=== PATIENT | female | born 1980 | race Caucasian/White ===

== ENCOUNTER → 2016-06-27 | Outpatient (CLI) | payer BC ==
[~2016-06-27] MED LIST: BENADRYL-DPS25 MG PO; EPIPEN 2-P0.3 MG/0.3 SQ; FEOSOL-DPS325 MG PO; MONTELUKAST SOD10 MG PO; MOTRIN-DPS800 MG PO; PRENATAL VIT1 TAB PO; TYLENOL #3 DPS1 TAB PO; TYLENOL DPS325 MG PO; ZANTAC DPS150 MG PO; ZOLOFT DPS50 MG PO; ZYRTEC DPS10 MG PO; [UNRECOGNIZED DRUG - OTHER]
== END | disposition home or self-care (01) ==
LOC: PTH.S 13:00
DX: N96 Recurrent pregnancy loss (principal)

== ENCOUNTER 2016-07-01 19:35 | Emergency (ER) | payer BC ==
[2016-07-03] MEDS ORDERED: PRENATAL VIT1 TAB PO (12:18)
[2016-07-03] MEDS ORDERED: BENADRYL-DPS25 MG PO (12:19)
[2016-07-03] MEDS ORDERED: [UNRECOGNIZED DRUG - OTHER] (12:20)
[2016-07-03] MEDS ORDERED: TYLENOL DPS325 MG PO (12:20)
[2016-07-03] MEDS ORDERED: MOTRIN-DPS800 MG PO (12:21)
[2016-07-03] MEDS ORDERED: TYLENOL #3 DPS1 TAB PO (12:21)
--- NOTE | 2016-07-10 23:29 | ER ---
ADMIT: 07/01/2016 RM/LOC: ER [facility] MR#: [id number] [address] [address] ZE MELCHOR [address] [place] [address] Emergency Room Report SEX: F AGE: 36 : 1980 DATE: 07/01/2016 HISTORY OF PRESENT ILLNESS: She has vaginal bleed for 2 days, worse for the last 2 hours. She estimates 3 pads in an hour. She had an induced miscarriage last Monday and D and C twice. She does not consider this being a D and C, and she is concerned about any retained products. She contacted Dr. Staples today, he advised her to come to the emergency room and get evaluated. ALLERGIES: SHE IS ALLERGIC TO ZITHROMAX. MEDICATIONS: She takes: 1. Claritin. 2. Cetirizine. 3. Ranitidine. PHYSICAL EXAMINATION: VITAL SIGNS: Within normal limits except for temperature of 100.1, and O2 sats 98%. EMERGENCY ROOM COURSE: We will be doing an ultrasound. The CBC within normal limits. Hemoglobin is normal. Gave her IV fluids. Dr. Staples will be contacted. KAMILA Rincon / Chapo Jimenez MD / cassandral JOB #: [id number] CC: Chapo Jimenez MD, Attending Physician
[2016-07-12] MEDS ORDERED: ZANTAC DPS150 MG PO (09:45)
[2016-07-12] MEDS ORDERED: MONTELUKAST SOD10 MG PO (09:45)
[2016-07-12] MEDS ORDERED: EPIPEN 2-P0.3 MG/0.3 SQ (09:46)
[2016-07-12] MEDS ORDERED: ZYRTEC DPS10 MG PO (09:46)
[2016-07-12] MEDS ORDERED: ZOLOFT DPS50 MG PO ×2 (09:47)
[2016-07-12] MEDS ORDERED: FEOSOL-DPS325 MG PO (09:48)
== END 2016-07-01 23:55 | disposition home or self-care (01) ==
LOC: ER 19:35
DX: O03.4 Incomplete spontaneous abortion without complication (principal); Z88.1 Allergy status to other antibiotic agents; Z88.8 Allergy status to other drugs, medicaments and biological substances; Z79.899 Other long term (current) drug therapy

== ENCOUNTER 2016-07-02 18:28 | Observation (INO) | payer BC ==
[2016-07-03] MEDS ORDERED: PRENATAL VIT1 TAB PO (12:18)
[2016-07-03] MEDS ORDERED: BENADRYL-DPS25 MG PO (12:19)
[2016-07-03] MEDS ORDERED: TYLENOL DPS325 MG PO (12:20)
[2016-07-03] MEDS ORDERED: [UNRECOGNIZED DRUG - OTHER] (12:20)
[2016-07-03] MEDS ORDERED: MOTRIN-DPS800 MG PO (12:21)
[2016-07-03] MEDS ORDERED: TYLENOL #3 DPS1 TAB PO (12:21)
--- NOTE | 2016-07-04 09:39 | OR ---
ADMIT: 07/02/2016 RM/LOC: W.02 [facility] MR#: [id number] [address] [address] ZE MELCHOR [address] [place] [address] Operative/Delivery Room Report SEX: F AGE: 36 : 1980 SURGERY DATE: 07/02/2016 SURGEON: Bruce Staples MD PRINCIPAL DIAGNOSIS: Incomplete . POSTOPERATIVE DIAGNOSIS: Incomplete . PROCEDURE: Dilation and curettage. INDICATION: The patient is a 36-year-old white female, 4, para 0-0-3- 0, who had presented with vaginal bleeding, had a known miscarriage which they had attempted to treat with misoprostol. ANESTHESIA: LMA. ESTIMATED BLOOD LOSS: 100 mL. COMPLICATIONS: None. FINDINGS: An anteflexed uterus, which sounded to 9 cm. PROCEDURE IN DETAIL: The patient was taken to the operating room, where she was prepped and draped in the usual fashion in dorsal lithotomy position. Speculum was placed in the vagina. Anterior lip of the cervix was identified and grasped with a single-tooth tenaculum. Cervix was then gently dilated utilizing Hanks dilators. An 8 mm curved suction curette was then gently advanced to the uterine fundus, suction was activated and the curette was rotated to remove any remaining products of conception. The procedure was repeated 2 additional times. A sharp curetting was then performed of the endometrial cavity until a gritty texture was noted throughout. Two additional passes were then performed with the suction curette. All instruments were then removed from the patient's vagina. The patient tolerated the procedure well and was taken to recovery room in stable condition. All sponge, instrument, and needle counts were correct. Bruce Staples MD/ modl JOB #: [id number] CC: Bruce Staples MD, Attending Physician Bruce Staples MD, Family Physician
--- NOTE | 2016-07-04 09:39 | HP ---
ADMIT: 07/02/2016 RM/LOC: ER [facility] MR#: [id number] [address] [address] ZE MELCHOR [address] [place] [address] Pre-OP History and Physical SEX: F AGE: 36 : 1980 DATE OF SERVICE: PRINCIPAL DIAGNOSES: 1. Vaginal bleeding. 2. Incomplete . HISTORY OF PRESENT ILLNESS: The patient is a 36-year-old white female, 4, para 0-0-3-0, who presented with complaints of vaginal bleeding. The patient is approximately 10 weeks estimated gestational age. She had a missed AB at approximately 6 weeks' estimated gestational age by crown-rump length, diagnosed approximately a week ago. She had initially opted for management with misoprostol with passage of some tissue; however a week later, she had recurrence of some heavy vaginal bleeding. She had an evaluation performed in the Emergency Department. Her hemoglobin at that point was 12. Ultrasound had showed some thickening with possible retained products of conception but her bleeding had resolved at that point. The patient was dismissed to home. The following day, the patient had a recurrence of her vaginal bleeding and presented once again to the Emergency Department. Hemoglobin at that time was noted to have dropped to 10.7. PREVIOUS MEDICAL HISTORY: She denies any significant previous medical history. She states that she has a possible exercise-induced asthma. SOCIAL HISTORY: She denies tobacco or drug use, drinks socially. ALLERGIES: SHE STATES SHE HAS AN ALLERGY TO AZITHROMYCIN, WHICH CAUSES LIP SWELLING. FAMILY HISTORY: Significant for ulcerative colitis in the patient's mother. PHYSICAL EXAMINATION: GENERAL: The patient is a well-developed, well- nourished white female. Alert and oriented, in no apparent distress with normal stream of thought and content of speech. HEART: Regular rate and rhythm without murmurs, rubs, or gallops. LUNGS: Clear to auscultation bilaterally. ABDOMEN: Soft with positive bowel sounds. Mild tenderness in the lower ADMIT: 07/02/2016 RM/LOC: [facility] MR#: [id number] [address] [address] ZE MELCHOR [address] [place] [address] Pre-OP History and Physical SEX: F AGE: 36 : 1980 quadrants bilaterally with no guarding or rebound. ASSESSMENT: Incomplete . We discussed management options with the patient. She and her , both opt for dilation and curettage. We discussed risks involved with surgery including risks of infection, risk of bleeding with possible need for blood transfusion, and the attendant infectious risks inherent in blood transfusion. We also discussed risk of damage to other organs including, but not limited to, bowel, bladder, major blood vessels, and ureters with possible need for additional surgery and repair should such damage occur. The patient voiced understanding of the risks, benefits, and alternatives to the proposed procedure and desires to proceed with dilation and curettage. Bruce Staples MD/ eduardo JOB #: [id number] CC: Julio Cesar Aggarwal MD, Attending Physician Bruce Staples MD, Family Physician
--- NOTE | 2016-07-05 17:50 | ER ---
ADMIT: 07/02/2016 RM/LOC: W.02 [facility] MR#: [id number] [address] [address] ZE MELCHOR [address] [place] [address] Emergency Room Report SEX: F AGE: 36 : 1980 DATE: 07/02/2016 ADDENDUM: This patient comes to the ER because she is having continued vaginal bleeding. She was seen in our ER yesterday and also last week seen by Dr. Freeman. She has a known AB in progress. She continues to have heavy bleeding and she is concerned she may need a D and C. Yesterday, her hemoglobin was normal, today her hemoglobin was 10.7. I spoke with Dr. Staples, he will come in and examine the patient and possibly take her to do a D and C. Please see my T-sheet and her dictation for further treatment. KAMILA Kidd / Nishant Bean MD / eduardo JOB #: [id number] CC: Bruce Staples MD, Attending Physician Bruce Staples MD, Family Physician
[2016-07-12] MEDS ORDERED: MONTELUKAST SOD10 MG PO (09:45)
[2016-07-12] MEDS ORDERED: ZANTAC DPS150 MG PO (09:45)
[2016-07-12] MEDS ORDERED: ZYRTEC DPS10 MG PO (09:46)
[2016-07-12] MEDS ORDERED: EPIPEN 2-P0.3 MG/0.3 SQ (09:46)
[2016-07-12] MEDS ORDERED: ZOLOFT DPS50 MG PO ×2 (09:47)
[2016-07-12] MEDS ORDERED: FEOSOL-DPS325 MG PO (09:48)
== END 2016-07-02 23:00 | disposition home or self-care (01) ==
LOC: ER 18:28 → WOR 19:30
PROVIDERS: ADMIT Obstetrics & Gynecology
PROC: 10A07ZZ Abortion of Products of Conception, Via Natural or Artificial Opening (ICD-10-PCS; principal; 2016-07-02)
DX: O03.4 Incomplete spontaneous abortion without complication (principal); N93.9 Abnormal uterine and vaginal bleeding, unspecified; Z88.1 Allergy status to other antibiotic agents

== ENCOUNTER 2016-07-06 18:40 | Inpatient (IN) | payer BC ==
[~2016-07-06] VITALS: Ht 167.6 cm; Wt 71.0 kg
[~2016-07-06 18:40] MED LIST changes: -EPIPEN 2-P0.3 MG/0.3 SQ; -FEOSOL-DPS325 MG PO; -MONTELUKAST SOD10 MG PO; -ZANTAC DPS150 MG PO; -ZOLOFT DPS50 MG PO; -ZYRTEC DPS10 MG PO
--- NOTE | 2016-07-08 10:47 | CO ---
ADMIT: 07/06/2016 RM/LOC: 529 [facility] MR#: [id number] 2620 [facility] [address] [place] [address] ZE MELCHOR [address] [place] [address] Consultation SEX: F AGE: 36 : 1980 DATE OF CONSULTATION: 07/07/2016 ATTENDING PHYSICIAN: Yamile Freeman MD CONSULTING PHYSICIAN: Lawanda Guaman MD REASON FOR CONSULTATION: Evaluation of fever. HISTORY OF PRESENT ILLNESS: Ms. Melchor is a very pleasant 36-year-old female. She has a past medical history significant for history of C. diff with recurrence as well as history of multiple losses. It was noted that she had a recent missed AB. She was initially seen on June 24, found to having missed AB at 6 weeks and 5 days. At that time, she underwent misoprostol treatment. She had followed up in clinic and had found to have thickened endometrium with an incomplete AB. She was continuing to have heavy bleeding and had contacted her Senior Energy Tr[employer] and eventually ended up with a D and C on 07/02. Her and she report that approximately 24 hours. After her D and C, she started having a fever, she notes that her fever at home was up as high as 100.8. She reports that she was having kind of a generalized headache, some generalized body aches as well as neck stiffness and a cough. She was also having some vaginal discharge that was noted to be foul smelling. She reports that when the fever would get better that her headache symptoms and other symptoms would seem to improve some. She reports she was having trouble with a lot of nausea also. She denies any diarrhea or other symptoms at that time. She reports that she was seen in the office on 07/06. At that time, was somewhat ill appearing and did not have improvement of her symptoms after IV fluids and IV antiemetics and therefore felt warranted admission for further evaluation and treatment. She was admitted with a presumed diagnosis of endometritis. Upon arrival to the floor, it sounds as if she had a fever of 102.4, she was given IV antibiotics, underwent an ultrasound which was normal. She had a CBC at the office which was normal although did have an elevated monocyte count. Of note, patient reports that she did receive an influenza vaccine this flu season. PAST MEDICAL HISTORY: 1. Significant for history of C. diff x3 in 2009. Initially treated with Flagyl, required hospitalization with IV Vanco and then had a recurrence approximately 9 months later that was treated. 2. Multiple losses. She is 4, para 0-0-4-0. 3. Exercise-induced anaphylaxis. 4. Eczema. PAST SURGICAL HISTORY: 1. Includes tonsillectomy and adenoidectomy. 2. Myringotomy with tube placement. 3. Multiple D and Cs in March of 2015, May 2015, and June of 2016. FAMILY HISTORY: Mother with Crohn disease. Father with hypertension. ADMIT: 07/06/2016 RM/LOC: 529 [facility] MR#: [id number] [address] [place] [phone] ZE MELCHOR [address] [place] [address] Consultation SEX: F AGE: 36 : 1980 SOCIAL HISTORY: She denies any alcohol, tobacco, or illicit drug use. 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 MEDICATIONS: Currently are: 1. Clindamycin. 2. Gentamicin. 3. Ampicillin. ALLERGIES: ZITHROMAX WHICH CAUSES SWOLLEN LIPS. REVIEW OF SYSTEMS: Obtained and was pretty much as noted above. PHYSICAL EXAMINATION: GENERAL: She is alert and oriented. She is somewhat slightly hoarse to voice. SKIN: Warm and dry. She does not have any rashes noted. HEENT: Pupils are round and reactive. Oropharynx is very dry mucous membranes. NECK: Supple. She is able to flex it down and touch her chest. She has no cervical lymphadenopathy palpated. HEART: Normal rate with a regular rhythm. LUNGS: Relatively clear to auscultation bilaterally. ABDOMEN: Soft. Bowel sounds are present. She does complain of lower pelvic pain on deep palpation. EXTREMITIES: Have no evidence of edema. NEUROLOGICAL: She appears grossly intact. Moving her upper and lower extremities symmetrically. LABORATORY VALUES: Reviewed. ASSESSMENT/PLAN: 1. Fever. 2. Headache. 3. Missed status post D and C recently. 4. Nausea. 5. Cough. 6. Body aches. 7. History of Clostridium difficile. At this time, I agree with her current management. I feel it is most likely endometritis. We will go ahead and add a procalcitonin to see if this is ADMIT: 07/06/2016 RM/LOC: 529 [facility] MR#: [id number] [address] [place] [address] ZE MELCHOR [address] [place] [address] Consultation SEX: F AGE: 36 : 1980 elevated. This would be more consistent with a bacterial infection and look at her and follow her bacterial response. We will go ahead and also check respiratory viral panel as well as a chest x-ray. For her acute blood loss anemia and not tolerating her vitamins currently, we will go ahead and check her iron studies and consider giving her IV iron. With her history of C. diff, we will go ahead and start her on oral probiotic daily in hopes of decreasing her chance of recurrent C. diff. Thank you for this consult. We will follow along. Lawanda Guaman MD/ eduardo JOB #: [id number] CC: Yamile Freeman MD, Attending Physician Yamile Freeman MD, Family Physician
--- NOTE | 2016-07-10 13:06 | HP ---
ADMIT: 07/06/2016 RM/LOC: 529 [facility] MR#: [id number] [address] [address] ZE MELCHOR [address] [place] [address] History and Physical SEX: F AGE: 36 : 1980 DATE OF SERVICE: CHIEF COMPLAINT: Fever and chills with pelvic cramping and foul-smelling vaginal discharge. HISTORY OF PRESENT ILLNESS: The patient is a 36-year-old, 4, para 0-0- 4-0, who presented to the [facility] on the 24 of June for a scheduled ultrasound visit. At that time, she was diagnosed with a missed at 6 weeks and 5 days. The options for treatment of missed including observation, medical management with misoprostol, or surgical management with D and C were discussed with the patient, who elected for misoprostol management. The patient had misoprostol placed on the 24 of June. She followed up at the clinic on June 27 for an ultrasound, which revealed that the gestational sac had passed; however, the endometrial thickness was 14 mm and the patient was notified that it was not at the level recommended for repeating misoprostol, but that she should expect some heavier bleeding or clotting in the future associated with passage of any remaining products of conception. The patient subsequently called the on-call doctor on July 01 and went to the emergency room due to vaginal bleeding, which had increased over a couple of hours. At that time, her hemoglobin was noted to be appropriate. The ultrasound was consistent with the previous ultrasound with slightly thickened endometrium. The patient was given IV fluids and discharged home. The following day, the bleeding became heavier, her hemoglobin had noted to decrease approximately 1.5 g from the previous night. She had initially opted for Methergine to help decrease bleeding and pass the remaining tissue at home; however, she did call her ip paralegal, who suggested that she might be better off with a D and C. Dr. Staples performed the D and C, and by his operative report, there were no complications on the evening of July 02. Over the next several days from July 03 to July 06, the patient call the clinic or the on-call doctor at least 4 times with concerns ranging from cramping, low-grade temperature, foul smelling discharge, nausea, and generally not feeling well. She was seen in clinic on the afternoon of July 06. At that time, she was noted to be febrile, tachycardic, and generally ill appearing. She was given IV fluids and antiemetics in the clinic without good response. Her white blood cell count was not elevated. Her hemoglobin was appropriate. Her wet mount and urinalysis were negative. However, due to her ill appearance and cervical motion tenderness, she was admitted to the hospital for inpatient management of presumed postoperative endometritis. PAST MEDICAL HISTORY: 1. Recurrent loss. 2. Exercise-induced anaphylaxis. 3. Eczema. 4. History of Clostridium difficile. PAST SURGICAL HISTORY: 1. Tonsillectomy and adenoidectomy. 2. Myringotomy with tube placement. ADMIT: 07/06/2016 RM/LOC: 529 [facility] MR#: [id number] [address] [place] [id number] ZE MELCHOR [address] [place] [address] History and Physical SEX: F AGE: 36 : 1980 3. Multiple dilation and curettages in March of 2015, May 2015, and June of 2016. FAMILY HISTORY: Mother with Crohn's disease. Father with hypertension. SOCIAL HISTORY: The patient denies alcohol, tobacco, or illicit drug use. 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 MEDICATIONS: 1. Ranitidine 150 mg p.o. daily. 2. Montelukast sodium 10 mg 1 tablet p.o. daily. 3. Cetirizine HCl 10 mg p.o. daily. 4. vitamins 1 tablet p.o. daily. 5. Tylenol with codeine 1-2 tablets every 6 hours as needed. 6. EpiPen 1 injection as needed. 7. The patient was also prescribed doxycycline 100 mg p.o. b.i.d. x10 days, which she has not yet started. ALLERGIES: ZITHROMAX, WHICH CAUSES SWOLLEN LIPS. REVIEW OF SYSTEMS: Significant for fever and chills, nausea, headache and neck pain, abdominal cramping, vaginal bleeding and foul smelling discharge as described in history of present illness. The patient denies vomiting, dysuria or changes in bowel habits. LABORATORY ASSESSMENT: CBC; white count 5.2, hemoglobin 9.8, hematocrit 28.7, platelets 161. Differential granulocytes 69.9%, lymphocytes 18%, monocytes 9.5%, eosinophil 2%, basophil 1%. Urinalysis; negative glucose, bilirubin, ketones, protein, urobilinogen and leukocyte esterase and nitrites, small blood. Wet mount, occasional white blood cells. No clue cells. No fungal elements. PHYSICAL EXAMINATION: VITAL SIGNS: Blood pressure 110/72, pulse 120, temperature 101.3 degrees Fahrenheit. GENERAL: Ill-appearing white female, alert and oriented x3, in mild distress. HEENT: Head is normocephalic, atraumatic. Pupils are equal and round. Extraocular muscles are intact. NECK: Supple. Trachea midline. HEART: Tachycardic with regular rhythm. LUNGS: Clear to auscultation bilaterally. ABDOMEN: Soft, nontender, and nondistended with hypoactive bowel sounds. EXTREMITIES: No clubbing, cyanosis, or edema. NEUROLOGIC: Cranial nerves II through XII grossly intact. PELVIC: Cervix is nulliparous with bloody discharge. No heavy bleeding, purulent discharge or products of conception noted at the nulliparous cervical os. On bimanual examination, there is some cervical motion tenderness. No adnexal or uterine tenderness. ADMIT: 07/06/2016 RM/LOC: 529 [facility] MR#: [id number] 2620 [facility] [address] [place], [place] [address] ZE MELCHOR [address] [place] [address] History and Physical SEX: F AGE: 36 : 1980 ASSESSMENT AND PLAN: 1. This is a 36-year-old, 4, para 0-0-4-0, postoperative day #4, status post dilation and curettage for retained products of conception after medical management of missed , who presents with pelvic pain, fever, chills, cramping and subjective foul-smelling discharge. 2. Presumed postoperative endometritis. The patient does not have an elevated white count or any signs of urinary tract infection or vaginal infection; however, she does have cervical motion tenderness, fever, tachycardia with the only localizing symptom being her cervical motion tenderness. Therefore, the patient will be admitted and given IV fluids for rehydration, antipyretics for fever, antiemetics for nausea and started on triple antibiotic therapy for presumed postoperative endometritis. Sepsis screening protocol will be initiated and followed if the patient screens positive for sepsis. Pelvic ultrasound will be ordered to assess for any other concerning symptoms. Yamile Freeman MD/ eduardo JOB #: [id number] CC: Yamile Freeman MD, Attending Physician Yamile Freeman MD, Family Physician
[2016-07-12] MEDS ORDERED: ZANTAC DPS150 MG PO (09:45)
[2016-07-12] MEDS ORDERED: MONTELUKAST SOD10 MG PO (09:45)
[2016-07-12] MEDS ORDERED: EPIPEN 2-P0.3 MG/0.3 SQ (09:46)
[2016-07-12] MEDS ORDERED: ZYRTEC DPS10 MG PO (09:46)
[2016-07-12] MEDS ORDERED: ZOLOFT DPS50 MG PO ×2 (09:47)
[2016-07-12] MEDS ORDERED: FEOSOL-DPS325 MG PO (09:48)
--- NOTE | 2016-07-22 12:39 | CO ---
ADMIT: 07/06/2016 RM/LOC: 529 [facility] MR#: [id number] 2620 [facility] [address] [place] [address] ZE MELCHOR [address] [place] [address] Consultation SEX: F AGE: 36 : 1980 DATE OF CONSULTATION: 07/10/2016 ATTENDING PHYSICIAN: Yamile Freeman MD CONSULTING PHYSICIAN: Chelsea Marsh MD REASON FOR CONSULT: Fever. Thank you, Dr. Olmedo, for the consult and involving me in this patient's care. HISTORY OF PRESENT ILLNESS: The patient is a 36-year-old woman, 4 para 0-0-4-0, who presented to [facility] Clinic on June 24 for a scheduled ultrasound visit. She had a missed at 6 weeks and 5 days and underwent medical management with misoprostol. She had thickened endometrium and continued vaginal bleeding and incomplete and hence underwent dilatation and curettage on July 02, 2016. Subsequently, she noticed increased fever and chills and some foul-smelling vaginal bleeding. She was admitted to the hospital on July 06 and started on clindamycin, ampicillin, and gentamicin for possible endometritis. Since then, she continues to have low-grade fevers and clinically has mildly improved but not completely better yet. At present, she still complains of low-grade fevers and some associated headache. She denies any more abdominal cramping or vaginal discharge. She also has history of recurrent C difficile colitis and has had 3 episodes in the past. Since today morning, she started noticing loose watery diarrhea. PAST MEDICAL HISTORY: 1. Recurrent loss. 2. Eczema. 3. Exercise-induced anaphylaxis. 4. History of Clostridium difficile. PAST SURGICAL HISTORY: 1. Tonsillectomy and adenoidectomy. 2. Multiple dilatation and curettages in March of 2015, May 2015, and June 2016. FAMILY HISTORY: Mother has Crohn's disease and father has hypertension. SOCIAL HISTORY: She denies any tobacco or recreational drug use and drinks alcohol occasionally. 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 ALLERGIES: TO AZITHROMYCIN WHICH CAUSES SWOLLEN LIPS. CURRENT MEDICATIONS: Include: 1. Ambien. 2. Colace. 3. Culturelle. 4. Feosol. ADMIT: 07/06/2016 RM/LOC: 529 [facility] MR#: [id number] [address] [address] ZE MELCHOR [address] [place] [address] Consultation SEX: F AGE: 36 : 1980 5. Pepcid. 6. . 7. Singulair. 8. Zyrtec. 9. Clindamycin 100 mg every 8 hours. 10.Gentamicin 70 mg IV every 8 hours. 11.Ampicillin 2 g every 6 hours. REVIEW OF SYSTEMS: A 10-point review of systems negative except as mentioned in the HPI. PHYSICAL EXAMINATION: VITAL SIGNS: Current temperature is 100, T-max was 101, heart rate 77, respirations 16, blood pressure 114/59, 100% on room air. GENERAL: No acute distress. HEENT. Head, normocephalic and atraumatic. Extraocular movements intact. NECK: Supple. CHEST: Clear to auscultation bilaterally. No wheezes, rales, or rhonchi. CARDIOVASCULAR: S1, S2 heard. Regular rate and rhythm. ABDOMEN: Soft, nontender, and nondistended. Active bowel sounds. EXTREMITIES: No peripheral edema. PSYCH: Normal affect. Memory intact. SKIN: No rash noted on exposed skin. DATA REVIEW: Chest x-ray showed interstitial prominence and asymmetric opacity in the right lower lobe. Liver ultrasound showed cholelithiasis and minimal thickening of the gallbladder wall. CBC today shows white count of 6, hemoglobin 7.9, and platelets of 203. CMP shows sodium of 147, creatinine 0.8. AST 62 and ALT 90. ASSESSMENT AND PLAN: 1. Endometritis. 2. Gram-positive cocci in blood, pending isolation. It is likely contaminant. 3. History of recurrent C difficile colitis. ADMIT: 07/06/2016 RM/LOC: 529 [facility] MR#: [id number] [address] [address] ZE MELCHOR [address] [place] [address] Consultation SEX: F AGE: 36 : 1980 4. Elevated liver function tests. Hepatitis panel is pending. At this time, I will repeat her blood cultures and discontinue ampicillin, gentamicin, and clindamycin. There is no evidence of Pseudomonas or MSSA on her prior cultures. Hence, I will narrow the antibiotics down to ampicillin/sulbactam 3 g IV every 6 hours. I will also do HIV test and repeat urinalysis and culture. Given persistent fevers, I would like to do a CT chest, abdomen and pelvis to rule out any other pathology. Clinically, there are no localizing signs of any infection. Thank you for the consult and I will continue to follow the patient. Chelsea Marsh MD/ eduardo JOB #: [id number] CC: Yamile Freeman MD, Attending Physician Yamile Freeman MD, Family Physician Luke Olmedo MD
--- NOTE | 2016-10-23 13:56 | DS ---
ADMIT: 07/06/2016 RM/LOC: [facility] MR#: [id number] [address] [address] ZE MELCHOR [address] [place] [address] General Discharge Summary SEX: F AGE: 36 : 1980 ADMISSION DATE: 07/06/2016 DISCHARGE DATE: 07/11/2016 ADMISSION DIAGNOSES: 1. Postoperative endometritis. 2. Recurrent loss. 3. Exercise-induced anaphylaxis. 4. Eczema. 5. History of Clostridium difficile. DISCHARGE DIAGNOSES: 1. Postoperative endometritis. 2. Recurrent loss. 3. Exercise-induced anaphylaxis. 4. Eczema. 5. History of Clostridium difficile. SERVICE: Gynecology. PHYSICIANS: 1. Yamile Freeman MD. 2. Syeda Benites MD. CONSULTATIONS: 1. Internal Medicine on 07/07/2016. 2. Infectious Disease on 07/09/2016. PROCEDURES: None. HISTORY AND PHYSICAL EXAM: The patient is a 36-year-old, 4, para 0-0- 4-0, presented to the [facility] after dilation and curettage for incomplete . The patient was noted to be ill-appearing and complained of cramping, low-grade temperature, foul-smelling discharge, nausea and malaise. She was given IV fluids and antiemetics in the clinic without good response, so she was admitted to [facility] for management of postoperative endometritis. Please see dictated history and physical exam for more information. HOSPITAL COURSE: On hospital day #1, the patient was admitted and started on ampicillin, gentamicin, and clindamycin for postoperative endometritis. Sepsis protocol was initiated. The patient was also given Zofran and Phenergan for nausea. The pelvic ultrasound was also obtained. On hospital day #2, the patient was only feeling slightly better, she was complaining of headache and neck stiffness as well as continued nausea and vaginal bleeding. She did have a temperature of 102 degrees Fahrenheit for a maximum temperature. Blood cultures were negative. She was started on iron due to acute blood loss anemia from her D and C, and postoperative bleeding. Internal Medicine was consulted. The patient had a respiratory viral panel, chest x-ray drawn. She was started on probiotics and iron studies were drawn. ADMIT: 07/06/2016 RM/LOC: [facility] MR#: [id number] [address] ZE MELCHOR MIHAI [address] [place] [address] General Discharge Summary SEX: F AGE: 36 : 1980 On the evening of the , the nurses called with concerns from the patient's family of the patient's skin looking yellow. CMP was added on to her morning labs. Her liver function tests the next day were noted to be mildly elevated, which was thought to be part of a viral infection versus the acute phase reaction due to her endometritis. Her anemia was stable and she was started on Venofer. Chest x-ray was repeated and DuoNebs were ordered. Temperature max had decreased and the patient seemed to be overall feeling better with less pain and minimal nausea. The plan was to discontinue the patient's antibiotics and discharge her when she had been afebrile for 48 hours. Over the weekend, the patient continued to spike intermittent temperatures, therefore Infectious Diseases was consulted. Dr. Marsh ordered C. diff testing as well as a CT of the chest, abdomen and pelvis. No obvious sources for infection were noted. On the morning of the , the patient denied pain, fever, chills, nausea, vomiting, or diarrhea. Vital signs were stable. It was noted in the chart that the patient has been afebrile since 09 of July, however, a malfunctioning thermometer was noted and an IRIS report was written. The patient may have actually been afebrile for 2 additional days prior to that, but the temperatures were taken with the malfunctioning thermometer, and so the length of the patient's febrile illness is unknown. However, the patient was, on the , felt to be stable for discharge to home. DISPOSITION: Discharged to home. DISCHARGE CONDITION: Good. DISCHARGE MEDICATIONS: 1. Iron sulfate 325 mg p.o. b.i.d. 2. vitamins 1 tablet p.o. daily. 3. Singulair 10 mg p.o. daily. 4. Zyrtec 10 mg p.o. daily. 5. Motrin 800 mg p.o. q.8 hours p.r.n. pain. 6. Tylenol 650 mg p.o. q.4 hours p.r.n. pain. The patient is to continue home medications includin. Ranitidine 150 mg p.o. daily. ADMIT: 07/06/2016 RM/LOC: [facility] MR#: [id number] [address] [address] ZE MELCHOR [address] [place] [address] General Discharge Summary SEX: F AGE: 36 : 1980 2. EpiPen injection as needed. 3. Zoloft 50 mg one-half tab daily for one week and then increasing to one tablet p.o. daily. 4. Doxycycline 100 mg p.o. b.i.d. DISCHARGE INSTRUCTIONS: The patient is to maintain pelvic rest until followup postsurgical exam as scheduled with Dr. Staples. She is also to follow up with laboratory assessment per Dr. Guaman's orders. The patient is to call the clinic or return to the nearest emergency room should she experience pain not controlled by pain medications, heavy vaginal bleeding, intractable nausea or vomiting, or temperature greater than 100.4 degrees Fahrenheit. Yamile Freeman MD/ eduardo JOB #: [id number] CC: Yamile Freeman MD, Attending Physician Yamile Freeman MD, Family Physician
== END 2016-07-11 12:00 | disposition home or self-care (01) | DRG 779 ==
LOC: 5MS 18:40
PROVIDERS: ADMIT Obstetrics & Gynecology
DX: O03.0 Genital tract and pelvic infection following incomplete spontaneous abortion (principal); D61.818 Other pancytopenia; E87.0 Hyperosmolality and hypernatremia; O03.89 Complete or unspecified spontaneous abortion with other complications; L30.9 Dermatitis, unspecified; K80.20 Calculus of gallbladder without cholecystitis without obstruction; N96 Recurrent pregnancy loss; J06.9 Acute upper respiratory infection, unspecified; F41.9 Anxiety disorder, unspecified